=== PATIENT | male | born 1985 | race Caucasian/White ===

== ENCOUNTER 2018-11-10 06:31 | Emergency (ER) | payer MEDICAID ==
[~2018-11-10] VITALS: Ht 180.3 cm; Wt 74.8 kg
[2018-11-10] MEDS ORDERED: MAG HYDROX/AL HYDROX/SIMETH 30 ML UDC PO ONE (07:00)
[2018-11-10] MEDS ORDERED: FAMOTIDINE (20 MG) 20 MG TABLET PO ONE (07:00)
[2018-11-10] MEDS ORDERED: ONDANSETRON 4 MG TAB.RAPDIS PO ONE (07:00)
[2018-11-10 07:01] VITALS: BP 138/80
[2018-11-10] MEDS ORDERED: FAMOTIDINE (20 MG) 20 MG TABLET ONE (07:03)
[2018-11-10] MEDS ORDERED: ONDANSETRON 4 MG TAB.RAPDIS ONE (07:03)
[2018-11-10] MEDS ORDERED: MAG HYDROX/AL HYDROX/SIMETH 30 ML UDC ONE (07:03)
--- NOTE | 2018-11-10 07:32 | NUR ---
REPORT GIVEN TO [employer] [employer] FOR [facility].
--- NOTE | 2018-11-10 07:44 | NUR ---
INITIAL CONTACT WITH PT READY FOR DISCHARGED - SEEN AND EVAL BY DR NERI AND GIVEN RX
== END 2018-11-10 07:46 | disposition home or self-care (01) ==
LOC: ER 06:42
DX: K29.00 Acute gastritis without bleeding (principal); Z60.2 Problems related to living alone
CPT/HCPCS: 74018; 99284; A4606; Q0162